=== PATIENT | female | born 1950 | race Caucasian/White ===

== ENCOUNTER 2017-09-03 13:09 | Emergency (ER) | payer MEDICARE ==
[~2017-09-03] VITALS: Ht 162.6 cm; Wt 90.7 kg
[2017-09-03] MEDS ORDERED: COLCRYS0.6 MG PO (13:30)
[2017-09-03] MEDS ORDERED: OMEPRAZOLE20 MG PO (13:31)
[2017-09-03] MEDS ORDERED: LOSARTAN POTASS50 MG PO (13:31)
[2017-09-03] MEDS ORDERED: XARELTO20 MG PO (13:31)
[2017-09-03] MEDS ORDERED: METOPROLOL TART25 MG PO (13:32)
[2017-09-03] MEDS ORDERED: ASPIRIN325 MG PO (13:36)
[2017-09-03] MEDS ORDERED: NORCO 5-325 TA1 EACH PO (14:35)
--- NOTE | 2017-09-03 19:33 | EKG ---
[facility] [address] [facility] [place] [address] Signed Normal sinus rhythm ST elevation, consider inferior injury or acute infarct ACUTE NM / STEMI Abnormal ECG No previous ECGs available Confirmed by VINCENT MONTENEGRO MD ([id number]) on 09/03/2017 6:16:28 PM Electronically Signed By: VINCENT MONTENEGRO MD 09/03/17 1933 PATIENT NAME: YOHAN PACKER Electrocardiogram DATE OF : 46 PHYSICIAN: VINCENT MONTENEGRO MD REPORT #: [id number] REPORT IS CONFIDENTIAL AND NOT TO BE RELEASED WITHOUT AUTHORIZATION
== END 2017-09-03 14:56 | disposition home or self-care (01) ==
LOC: ED 13:09
DX: I31.9 Disease of pericardium, unspecified (principal); Z79.899 Other long term (current) drug therapy; Z79.82 Long term (current) use of aspirin
CPT/HCPCS: 80053; 84484; 85025; 93005; 93010; 96374; 99284; J3010

== ENCOUNTER 2017-09-12 12:41 | Emergency (ER) | payer MEDICARE ==
[~2017-09-12] VITALS: Ht 162.6 cm; Wt 90.7 kg
[~2017-09-12 12:41] MED LIST: ASPIRIN325 MG PO; COLCRYS0.6 MG PO; LOSARTAN POTASS50 MG PO; METOPROLOL TART25 MG PO; NORCO 5-325 TA1 EACH PO; OMEPRAZOLE20 MG PO; XARELTO20 MG PO
[2017-09-12] MEDS ORDERED: LASIX20 MG PO (16:06)
[2017-09-12] MEDS ORDERED: POTASSIUM CHLO20 ME1 PO (16:06)
--- NOTE | 2017-09-12 21:11 | EKG ---
[facility] [address] [facility] [place] [address] Signed Poor data quality, interpretation may be adversely affected Normal sinus rhythm Normal ECG When compared with ECG of 03-SEP-2017 13:13, ST less elevated in Inferior leads Confirmed by SHAWNA CHOI MD ([id number]) on 09/12/2017 9:11:22 PM Electronically Signed By: SHAWNA CHOI MD 09/12/17 2111 PATIENT NAME: OCHOAYOHAN Electrocardiogram DATE OF : 46 PHYSICIAN: SHAWNA CHOI MD REPORT #: [id number] REPORT IS CONFIDENTIAL AND NOT TO BE RELEASED WITHOUT AUTHORIZATION
== END 2017-09-12 17:07 | disposition home or self-care (01) ==
LOC: ED 12:41
DX: I31.9 Disease of pericardium, unspecified (principal); I11.0 Hypertensive heart disease with heart failure; I50.9 Heart failure, unspecified; J45.909 Unspecified asthma, uncomplicated; E11.9 Type 2 diabetes mellitus without complications; Z88.5 Allergy status to narcotic agent; Z79.82 Long term (current) use of aspirin; Z79.899 Other long term (current) drug therapy
CPT/HCPCS: 71046; 80053; 82803; 83735; 83880; 84484; 85025; 93005; 93010; 94640; 96374; 99284

== ENCOUNTER 2018-05-04 06:25 | Day surgery (SDC) | payer MEDICARE ==
[~2018-05-04] VITALS: Ht 162.6 cm; Wt 90.3 kg
[~2018-05-04 06:25] MED LIST changes: +LASIX20 MG PO; +POTASSIUM CHLO20 ME1 PO; +PROVENTIL HFA6.7 GM INH
[2018-05-04] MEDS ORDERED: TRAVATAN Z5 ML OPTH (06:47)
[2018-05-04] MEDS ORDERED: VENTOLIN HFA18 GM ×2 (06:47→06:48)
[2018-05-04] MEDS ORDERED: COQ-1030 MG PO (06:48)
[2018-05-04] MEDS ORDERED: VITAMIN D2000 UNIT PO (06:48)
--- NOTE | 2018-05-04 08:36 | NUR ---
05/04/18 0836 Domenica Fierro 0877-PATIENT ARRIVED TO PACU ON 3L NC PLACED ON 2L. RR EVEN. PATIENT REACTIVE TO VOICE EYES OPEN DENIES PAIN OR NAUSEA. ABDOMEN ROUND AND SOFT ENCOURAGED TO PASS GAS. GLUCOSE 132
--- NOTE | 2018-05-04 11:40 | NUR ---
PT RESTING COMFORTABLY, ALERT, ORIENTED AND SUPPORTED BY A FRIEND. PT HAS FEW CONCERNS, REQUESTED PRAYER. WILL FOLLOW NEEDED
--- NOTE | 2018-05-05 09:27 | OR ---
[facility] [address] [place], [place] [address] Signed DATE OF OPERATION: 05/04/2018 SURGEON: Ana Yi MD PREOPERATIVE DIAGNOSES: 1. Hiatal hernia. 2. Gastroesophageal reflux disease. 3. Hoarse voice. 4. Cough with asthma. 5. Proximal esophageal stricture, 2010 status post dilation. 6. Personal history of colonic polyps, 1999. POSTOPERATIVE DIAGNOSES: 1. Mild distal gastritis. 2. Tiny hiatal hernia. 3. An 8 mm polyp at 28 cm (tattoo). 4. Moderate sigmoid diverticulosis. PROCEDURES: 1. EGD with CLOtest and biopsies of the antrum, distal esophagus and mid esophagus. 2. Colonoscopy with snare polypectomy, hot biopsy and injection of tattoo. ESTIMATED BLOOD LOSS: None. INDICATIONS: Yohan is a 67-year-old female, who came to us for upper and lower endoscopy. She is known to have hiatal hernia and acid reflux for many years. She said it makes her voice hoarse. She said it is particularly worse in the mornings. She also has a cough and a history of asthma. She spoke of the proximal esophageal stricture dilated back [place] [address] Marley in [place], [place]. In addition, she had a 2.5 cm colonic polyp removed in 1999. She went back in 3 months and then annually for 2 years without any additional polyps removed. She was asked to follow up every 5 years after that, but she obviously missed that rotation during her move to [place], [place]. Her last colonoscopy was in 2007. She said it was negative. She tells me currently she has no lower GI complaints. She thinks maybe she has a little trouble swallowing in the proximal esophagus. She has had no one in the family has any "history of colon cancer or polyps." I met with Yohan in the office and we gave her pamphlets on both upper and lower endoscopy. We reviewed the nature of the 2 tests along with the risks including, but not limited to gas bloating, crampy abdominal pain, bleeding, Electronically Signed By: ANA YI MD 05/05/18 0927 PATIENT NAME: YOHAN PACKER OPERATIVE REPORT DATE OF : 46 REPORT #: [id number] PHYSICIAN: ANA YI MD PCP: NO PRIMARY CARE PHYSICIAN REPORT IS CONFIDENTIAL AND NOT TO BE RELEASED WITHOUT AUTHORIZATION [facility] [address] [place], [place] [address] Signed perforation, requiring surgery, and missed diagnosis. We also discussed the need for IV conscious sedation. We did review her barium swallow. She has just a little spillage with some silent aspiration. However, the remainder of the test was unremarkable. Specifically, no evidence of proximal esophageal stricture. Her motility seems to be unremarkable. She may have just a tiny hiatal hernia. No reflux was elicited during the test. I had reviewed all this with Yohan in detail. She had expressed understanding and wished to proceed. PROCEDURE NOTE: Yohan was taken into our endoscopy suite and placed in the supine semi-recumbent position. The posterior oropharynx was anesthetized with Hurricaine spray. A bite block was utilized for the case. She was given a total of 8 mg of Versed and 100 mcg of fentanyl to cover both the upper and lower endoscopy. The adult gastroscope was introduced and advanced quite readily out into the third portion of the duodenum under direct visualization of camera without difficulty. The duodenum and pyloric channel were unremarkable. She had very minimal patchy erythematous changes in the distal portion of the antrum. We went ahead and took a biopsy of the antrum for pathologic review as well as CLOtest. The incisura, body, and fundus of the stomach were unremarkable. Upon retroflexion of scope, she does not have a classic hiatal hernia. She may have a small amount of stomach being pulled in the one side that probably makes her valve slightly less than optimal. There are no evidence of any ulcerations, gastric or esophageal varices. The scope was withdrawn up to the area of the GE junction, which was compliant without stricture. There was minimal disruption at the Z-line. We went ahead and took a biopsy in the distal esophagus and middle esophagus, although they seemed to be unremarkable. No evidence of any stricture in the proximal esophagus. After this, the gas was suctioned out and the gastroscope removed. Yohan had tolerated that upper endoscopy quite well. Yohan was rotated into the left lateral decubitus position. She was maintained on IV sedation with the Versed and fentanyl. A digital rectal exam was performed and this was unremarkable. The adult colonoscope was introduced and advanced all the way around into the cecum under direct visualization of camera. It took some extra sedation in rotating Yohan into the supine position with abdominal compression in order to get the scope directly into the cecum itself. Overall, her prep was acceptable. She had a couple of areas of liquid particulate stool. Most of that was suctioned out. We had taken pictures throughout for photodocumentation. The scope was then slowly withdrawn. We could easily see the appendiceal orifice in the Crohn's foot. She does have moderate sigmoid diverticulosis. They are moderate size, moderate number, and scattered about. At 28 cm in the sigmoid colon, she had an 8 mm somewhat pedunculated polyp. We took that off with the snare and then took additional hot biopsy at the base and sent that off to pathology Department. We injected a small tattoo at the base of that polyp to nataliia its location. The rectum was unremarkable. Upon retroflexion of the scope, there Electronically Signed By: ANA YI MD 05/05/18 0927 PATIENT NAME: YOHAN PACKER OPERATIVE REPORT DATE OF : 46 REPORT #: [id number] PHYSICIAN: ANA YI MD PCP: NO PRIMARY CARE PHYSICIAN REPORT IS CONFIDENTIAL AND NOT TO BE RELEASED WITHOUT AUTHORIZATION [facility] [address] [place], [place] [address] Signed was no additional pathology noted above the anal canal. After this, the gas was suctioned out. The colonoscope removed. Yohan had tolerated the upper and lower endoscopy quite well. RECOMMENDATIONS: I will see Yohan back in my office in 7 to 14 days to review her results of the upper and lower endoscopy. We could also review the barium swallow once again. She will resume her Xarelto in 7 days. Ana Yi MD ALB/MODL /[id number] cc: MD Dr. Min Martin Dr. Copies: ANA YI MD ~ Electronically Signed By: ANA YI MD 05/05/18 0927 PATIENT NAME: YOHAN PACKER OPERATIVE REPORT DATE OF : 46 REPORT #: [id number] PHYSICIAN: ANA YI MD PCP: NO PRIMARY CARE PHYSICIAN REPORT IS CONFIDENTIAL AND NOT TO BE RELEASED WITHOUT AUTHORIZATION
== END 2018-05-04 09:15 | disposition home or self-care (01) ==
LOC: DS 06:25
PROVIDERS: Colon & Rectal Surgery
PROC: 0DB28ZX Excision of Middle Esophagus, Via Natural or Artificial Opening Endoscopic, Diagnostic (ICD-10-PCS; 2018-05-04)
PROC: 0DBE8ZZ Excision of Large Intestine, Via Natural or Artificial Opening Endoscopic (ICD-10-PCS; 2018-05-04)
PROC: 3E0H8GC Introduction of Other Therapeutic Substance into Lower GI, Via Natural or Artificial Opening Endoscopic (ICD-10-PCS; 2018-05-04)
PROC: 0DB78ZX Excision of Stomach, Pylorus, Via Natural or Artificial Opening Endoscopic, Diagnostic (ICD-10-PCS; principal; 2018-05-04 06:45)
PROC: 0DB38ZX Excision of Lower Esophagus, Via Natural or Artificial Opening Endoscopic, Diagnostic (ICD-10-PCS; 2018-05-04 06:45)
DX: Z12.11 Encounter for screening for malignant neoplasm of colon (principal); D12.6 Benign neoplasm of colon, unspecified; K57.30 Diverticulosis of large intestine without perforation or abscess without bleeding; K29.50 Unspecified chronic gastritis without bleeding; K44.9 Diaphragmatic hernia without obstruction or gangrene; I11.0 Hypertensive heart disease with heart failure; I50.9 Heart failure, unspecified; Z86.010 Personal history of colon polyps; J45.909 Unspecified asthma, uncomplicated; Z98.890 Other specified postprocedural states; Z88.5 Allergy status to narcotic agent; Z79.899 Other long term (current) drug therapy
CPT/HCPCS: 86677; 88305; 99153; G0500; J2250; J3010; J7120